=== PATIENT | female | born 2000 | race Caucasian/White ===

== ENCOUNTER 2025-04-10 20:21 | Emergency (ER) | payer MEDICAID ==
[~2025-04-10] VITALS: Ht 167.6 cm; Wt 82.0 kg
[2025-04-10 20:24] VITALS: O2SAT 97
[2025-04-10 20:29] VITALS: BP 164/88; PULSE 68; RESP 16; TEMP 36.9; O2SAT 100
== END 2025-04-10 21:55 | disposition left against medical advice (07) ==
LOC: ER 20:21
DX: G03.9 Meningitis, unspecified (principal); Z53.21 Procedure and treatment not carried out due to patient leaving prior to being seen by health care provider
CPT/HCPCS: 99281